=== PATIENT | female | born 1955 | race Two or more races ===

== ENCOUNTER 2017-09-07 13:24 | Emergency (ER) | payer OTHER ==
[2017-09-07] MEDS ORDERED: Ibuprofen TAB* 800 MG PO ONE (15:00)
--- NOTE | 2017-09-07 15:04 | ED ---
Upper Extremity Pain - HPI Summary HPI Summary: 62F presents with left shoulder pain s/p mechanical fall. She states she slipped and landed hard on her left shoulder and felt a pop. She admits to numbness at the time that has resolved. She denies any previous injury to the area. She is right handed. She works as an aide. The pain is 10/10. She did not take anything for pain. The pain is worst with movement. Resting her arm makes it fell better. - History of Current Complaint Chief Complaint: EDExtremityUpper Stated Complaint: FALL,POSSIBLE BROKEN LEFT SHOULDER Time Seen by Provider: 09/07/17 14:30 - Allergies/Home Medications Allergies/Adverse Reactions: Allergies Allergy/AdvReac Type Severity Reaction Status Date / Time No Known Allergies Allergy Verified 09/07/17 13:31 PMH/Surg Hx/FS Hx/Imm Hx Endocrine/Hematology History: Denies: Hx Anticoagulant Therapy Cardiovascular History: Denies: Hx Myocardial Infarction Infectious Disease History: No Infectious Disease History: Denies: Traveled Outside the [place] in Last 30 Days - Family History Known Family History: Positive: Hypertension - Social History Alcohol Use: Occasionally Substance Use Type: Reports: None Review of Systems Negative: Fever Negative: Chest Pain Negative: Shortness Of Breath Positive: Myalgia - left shoulder pain All Other Systems Reviewed And Are Negative: Yes Physical Exam Triage Information Reviewed: Yes Vital Signs On Initial Exam: Initial Vitals Temp Pulse Resp BP Pulse Ox 98.2 F 55 20 108/68 100 09/07/17 13:26 09/07/17 13:26 09/07/17 13:26 09/07/17 13:26 09/07/17 13:26 Completion Of Physical Exam Limited Due To: Dementia Appearance: Positive: Pain Distress Skin: Positive: Warm, Dry Head/Face: Positive: Normal Head/Face Inspection Eyes: Positive: Normal, Conjunctiva Clear Respiratory/Lung Sounds: Positive: Clear to Auscultation, Breath Sounds Present Cardiovascular: Positive: Normal, RRR Musculoskeletal: Positive: Limited @ - left shoulder, Other - tenderness humerus , good pulses, sensation grossly intact, capillary refill<2secs, good finance admin strength Neurological: Positive: Normal Psychiatric: Positive: Normal Diagnostics - Vital Signs Vital Signs Temp Pulse Resp BP Pulse Ox 09/07/17 13:26 98.2 F 55 20 108/68 100 - Laboratory Lab Statement: Any lab studies that have been ordered have been reviewed, and results considered in the medical decision making process. - Radiology shoulder Xray Interpretation: Positive (See Comments) - IMPRESSION: COMMINUTED FRACTURE OF THE LEFT HUMERAL HEAD DESCRIBED ABOVE. Radiology Interpretation Completed By: Radiologist - CT shoulder CT Interpretation: Positive (See Comments) - IMPRESSION: GREATER TUBEROSITY FRACTURE LEFT HUMERUS CT Interpretation Completed By: Radiologist Course/Dx - Course Course Of Treatment: 62F presents with left shoulder pain s/p mechanical fall. She states she slipped and landed hard on her left shoulder and felt a pop. She admits to numbness at the time that has resolved. She denies any previous injury to the area. She is right handed. 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 She did not take anything for pain. The pain is worst with movement. Resting her arm makes it fell better. on exam tenderness left humerus, neurovascular intact. xray shows humerus fracture. spoke with dr wilkins said get CT. CT shows greater tronchanter fracture. discussed with dr farris will discharge with sling and ortho referral. patient understand and agrees with plan. - Diagnoses Differential Diagnosis/HQI/PQRI: Positive: Fracture (Closed), Strain, Sprain Provider Diagnoses: Left humeral fracture - Physician Notifications Discussed Care of Patient With: dr wilkins Time Discussed With Above Provider: 15:10 - get CT Discharge - Discharge Plan Condition: Good Disposition: HOME Prescriptions: oxyCODONE/Acetamin 5/325 MG* [Percocet 5/325 TAB*] 1 tab PO Q6H PRN #20 tab MDD 4 PRN Reason: Pain Patient Education Materials: Proximal Humerus Fracture (ED) Referrals: Norberto Greene MD [Primary Care Provider] - Jw Wilkins MD [Medical Doctor] - Additional Instructions: Keep elbow in sling as needed Call ortho office tomorrow to set up appointment for follow up Use ibuprofen for pain every 6 hours and use narcotic for breakthrough pain every 6 hours, narcotic will cause constipation Ice, elevate Return to ED if develop any new or worsening symptoms
--- NOTE | 2017-09-07 15:06 | RAD ---
INDICATION: Left shoulder pain after a fall COMPARISON: None. TECHNIQUE: 4 views of the left shoulder were obtained. FINDINGS: On the AP view there is a nondisplaced fracture line horizontally oriented through the anatomical neck of the left head of the humerus. There is a minimally displaced fracture of the greater tuberosity. IMPRESSION: COMMINUTED FRACTURE OF THE LEFT HUMERAL HEAD DESCRIBED ABOVE.
--- NOTE | 2017-09-07 16:12 | RAD ---
INDICATION: Left humeral fracture COMPARISON: Shoulder same date TECHNIQUE: Axial scans of the left shoulder were obtained with coronal and sagittal reconstructions FINDINGS: There is a mildly comminuted fracture of the greater tuberosity with minor distraction. No other fractures are evident. The glenohumeral and AC joints are intact. The visualized portion of left hemithorax is normal. There are no significant soft tissue abnormalities. IMPRESSION: GREATER TUBEROSITY FRACTURE LEFT HUMERUS
[2017-09-07 17:57] VITALS: BP 131/84
== END 2017-09-07 17:30 | disposition home or self-care (01) ==
LOC: ED 13:24
DX: M25.512 Pain in left shoulder (principal); S42.302A Unspecified fracture of shaft of humerus, left arm, initial encounter for closed fracture; W19.XXXA Unspecified fall, initial encounter; Y93.9 Activity, unspecified; Y92.9 Unspecified place or not applicable
CPT/HCPCS: 99282; A9270-GY